=== PATIENT | female | born 1985 | race Caucasian/White ===

== ENCOUNTER 2017-04-08 15:25 | Emergency (ER) | payer MEDICAID ==
[2017-04-08 15:37] VITALS: BP 130/68; PULSE 67; RESP 18; TEMP 98.2; O2SAT 95
--- NOTE | 2017-04-08 15:56 | EDPHY ---
H & P Stated Complaint: back pain started last saturday, unknown injury Time Seen by Provider: 04/08/17 15:44 HPI/ROS: Chief Complaint: Back pain HPI: 31-year-old woman who works as a [employer] started having back pain in her left upper back a week ago after she woke up. She has had persisting aching pain on that side which is not radiate around to the left chest. He has affected her ability to work and lift. She has not been taking any medications for this. She has not had any cough or shortness of breath. No fevers or chills. No nausea or vomiting. No numbness or weakness. No tingling. She is ambulating and moving her upper lower extremities without any difficulty. She does state it is actually feeling a little bit better. ROS: 10 point Review of Systems is negative except as noted in the HPI. PMH: Denies Social History: Recently quit smoking, occasional alcohol, no recreational drug use Family History: non-contributory Physical Exam: Gen: Awake, Alert, No Distress HEENT: Nose: no rhinorrhea Eyes: PERRLA, EOMI Mouth: Moist mucosa Neck: Supple, no JVD Chest: There is some mild tenderness in her left pectoralis in the insertion in her left chest, lungs clear to auscultation Heart: S1, S2 normal, no murmur Abd: Soft, non-tender, no guarding Back: no CVA tenderness, no midline tenderness she has some palpable muscle spasm in her left trapezius Ext: no edema, non-tender Skin: no rash Neuro: CN II-XII intact, Sensation grossly intact, Strength 5/5 in bilateral upper and lower extremities - Personal History LMP (Females 10-55): Extended Cycle BCP/Inj - Medical/Surgical History Hx Asthma: Yes Hx Chronic Respiratory Disease: No Hx Diabetes: No Hx Cardiac Disease: No Hx Renal Disease: No Hx Cirrhosis: No Hx Alcoholism: No Hx HIV/AIDS: No Hx Splenectomy or Spleen Trauma: No Other PMH: asthma - Social History Smoking Status: Former smoker Constitutional: Initial Vital Signs Temperature (C) 36.8 C 04/08/17 15:33 Heart Rate 67 04/08/17 15:33 Respiratory Rate 18 04/08/17 15:33 Blood Pressure 130/68 H 04/08/17 15:33 O2 Sat (%) 95 04/08/17 15:33 O2 Delivery Mode Room Air Allergies/Adverse Reactions: No Known Allergies Allergy (Verified 12/09/14 16:17) Home Medications: Medication Instructions Recorded Metronidazole 500 mg PO BID 7 Days tab 12/09/14 Obcp 12/09/14 Medical Decision Making ED Course/Re-evaluation: Patient presenting with symptoms of muscle spasm. I have recommended ibuprofen. Ice, will give her core strengthening exercises. Follow up with primary care physician. She does not feel she needs a work note at this time. Departure - Departure Disposition: Home, Routine, Self-Care Clinical Impression: Thoracic back pain, Muscle strain Condition: Good Instructions: Back Pain (ED), Core Strengthening Exercises (ED) Additional Instructions: Take ibuprofen 600 mg 3 times a day. You may also take acetaminophen every 4 hr per package instructions. You may apply ice for 20 min every 2 hr. It is fine to have massage therapy done if this makes you feel better. Is important not to rest, keep active but do not overly exerts yourself. Follow up with her primary care physician in 3-4 days for further evaluation. Referrals: Rachele Torres MD [Medical Doctor] - As per Instructions
== END 2017-04-08 16:09 | disposition home or self-care (01) ==
LOC: CED 15:25
DX: S29.012A Strain of muscle and tendon of back wall of thorax, initial encounter (principal); J45.909 Unspecified asthma, uncomplicated; Z87.891 Personal history of nicotine dependence; X58.XXXA Exposure to other specified factors, initial encounter